=== PATIENT | male | born 1995 | race African-American/Black ===

== ENCOUNTER 2018-06-03 07:05 | Emergency (ER) | payer OTHER ==
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
[2018-06-03 07:45] LABS: CHLORIDE,CL 106 mmol/L (98-107); SODIUM,NA 141 mmol/L (136-145)
[2018-06-03 07:48] LABS: ANION GAP 13.1 mmol/L (10-20)
[2018-06-03] MEDS: Iopamidol 612 MG/ML 100 ML Bottle IVPUSH ONE (08:05)
--- NOTE | 2018-06-03 08:33 | CT ---
[id number] CT/CT Head WO IV EXAM: CT Head WO IV CLINICAL DATA: TRAUMA COMPARISON: NO PREVIOUS SIMILAR EXAM IS AVAILABLE FOR COMPARISON. FINDINGS: There is no mass or mass effect. There is no hemorrhage or hydrocephalus. There are no extra-axial fluid collections. There are no sites of abnormal attenuation. IMPRESSION: NO PLAIN CT EVIDENCE OF ACUTE INTRACRANIAL PROCESS. Mahad Nance MD 06/03/18 0832 Thank you for allowing us to participate in the care of your patient.
--- NOTE | 2018-06-03 08:39 | CT ---
[id number] CT/CT Cervical Spine WO IV Exam: CT Cervical Spine WO IV Clinical Data: TRAUMA COMPARISON: NO PREVIOUS SIMILAR EXAM IS AVAILABLE FINDINGS: No fracture or subluxation is seen. There is a normal appearance of the C1-C2 articulation. The prevertebral soft tissues are unremarkable. IMPRESSION: NO FRACTURE OR SUBLUXATION. Mahad Nance MD 06/03/18 0838 Thank you for allowing us to participate in the care of your patient.
--- NOTE | 2018-06-03 08:42 | CT ---
[id number] CT/CT Chest Abdomen Pelvis W IV Exam: CT Chest Abdomen Pelvis W IV Clinical Data: TRAUMA COMPARISON: NO PREVIOUS SIMILAR EXAM IS AVAILABLE FINDINGS: There is no pulmonary parenchymal contusion. There is no pneumothorax or pleural effusion. There is no fracture of the thoracolumbar spine. No obvious displaced rib fractures are seen. There is no evidence of a depressed sternal fracture. No obvious displaced scapular fracture is seen. The great vessels are intact. There is no mediastinal mass, adenopathy, or hematoma. Streak artifact results as the patient's arms are not over the head The liver and spleen, kidneys and adrenals, pancreas and aorta are unremarkable. The pelvis shows no mass, adenopathy, or hemorrhage. There is no obvious fracture of the bony pelvis. The gallbladder and appendix are unremarkable. There is no small bowel distention of small bowel wall thickening. The mesenteric vessels demonstrate normal enhancement. IMPRESSION: NO ACUTE VISCERAL INJURY. Mahad Nance MD 06/03/18 0841 Thank you for allowing us to participate in the care of your patient.
[2018-06-03] MEDS ORDERED: Lidocaine 1% 30 ML SDV INJECT ONE (08:45)
[2018-06-03] MEDS ORDERED: Acetaminophen/HYDROcodone 325-10 MG Tab PO ONE (08:48)
== END 2018-06-03 07:51 | disposition home or self-care (01) ==
LOC: VM.ED 07:05
DX: S11.91XA Laceration without foreign body of unspecified part of neck, initial encounter (principal); S51.811A Laceration without foreign body of right forearm, initial encounter; V49.9XXA Car occupant (driver) (passenger) injured in unspecified traffic accident, initial encounter
CPT/HCPCS: 12005; 36415; 70450; 71260; 72125; 74177; 80053; 81003; 85025; 85610; 85730; 99285-25; Q9967